=== PATIENT | female | born 1960 | race Caucasian/White ===

== ENCOUNTER → 2017-07-17 15:45 | Outpatient (CLI) | payer BC, SELFPAY ==
--- NOTE | 2017-07-17 15:50 | MM_ITS ---
MM Dig screening mamm BI w/CAD CAD Screening ORDERING PHYSICIAN : Adolph Quintero MD PATIENT AGE: 56 years GENDER: Female COMPARISON: Previous mammograms: June 2016,; June 2014, 1999May [id number] INDICATION: No hormones no new complaints. Family history. Great aunt with breast cancer TECHNIQUE: Standard CC and MLO images were obtained. R2 CAD reviewed. FINDINGS: [id number] residual fibroglandular elements both breasts. Mild asymmetry. Gradual Regression of fibroglandular elements since previous studies dating back to 2012 as patient matures.. No significant new areas of concern. No dominant mass. No suspicious calcifications. The pattern of mild asymmetry remain stable RIGHT BREAST:. No new areas of concern. LEFT BREAST: No new areas of concern The tiny pinpoint calcifications noted on previous studies less evident and scattered compatible with benign calcification.. No significant calcifications IMPRESSION: Stable bilateral mammogram Follow-up in one year recommended BI-RADS Category: 2 Benign Finding(s) RECOMMENDED FOLLOW-UP: 1YR - 1 YEAR FOLLOW-UP (A letter has been sent to the patient regarding results of the study.)
== END ==
PROVIDERS: Family Provider Family Medicine; PCP Family Medicine; Visit Provider Obstetrics & Gynecology
DX: Z12.31 Encounter for screening mammogram for malignant neoplasm of breast (principal)
CPT/HCPCS: 77067

== ENCOUNTER → 2017-07-22 14:28 | Outpatient (CLI) | payer BC, SELFPAY ==
[2017-07-22 14:51] LABS: Hematocrit 35.3 % (37.0-47.0); Hemoglobin 11.6 g/dL (12.2-16.2)
== END ==
PROVIDERS: PCP Family Medicine; Visit Provider Surgery
DX: K62.5 Hemorrhage of anus and rectum (principal); K64.9 Unspecified hemorrhoids; K57.30 Diverticulosis of large intestine without perforation or abscess without bleeding; Z01.812 Encounter for preprocedural laboratory examination
CPT/HCPCS: 36415; 85014; 85018

== ENCOUNTER 2017-07-31 09:03 | Day surgery (SDC) | payer BC, SELFPAY ==
[2017-07-31] VITALS (14 sets, daily range): BP systolic 101–131; BP diastolic 48–79; PULSE 56–87; RESP 16–20; TEMP 37.1; O2SAT 94–98; BMI 29.5
[2017-07-31 09:55] LABS: Hematocrit 37.1 % (37.0-47.0); Hemoglobin 12.4 g/dL (12.2-16.2)
--- NOTE | 2017-07-31 11:04 | HMH.SCOPE ---
- Procedure: Date: 07/31/17 Procedure Performed:: Colonoscopy Indications:: This is a 56-year-old female seen in consultation from Dr. Quintero for colonoscopy. She has had intermittent bright red blood per rectum that she attributes to hemorrhoids. In 2005 she had confirmation of diverticulosis and hemorrhoids, but no polypoid lesions on colonoscopy. Performing Provider:: Carlos Banuelos MD Referring Provider:: Dr. Adolph Quintero The patient's primary care provider is Dr. Fam Preciado Sedation:: IV sedation with 9 mg of Versed and 200 mcg of fentanyl Procedure:: After informed consent was obtained, the patient was taken to the endoscopy suite. IV sedation ensued after she was transferred to the left lateral decubitus position. Digital rectal exam revealed mild stenosis. Mild hemorrhoidal cushions were noted. The colonoscope was placed in position. The entire colon was evaluated. Bowel preparation was relatively fair with irrigation and suctioning used to improve visualization. Moderate spasticity was encountered. Moderate sigmoid diverticulosis confirmed. No polypoid lesions were seen. Hemorrhoidal cushions that were relatively mild were seen. No thrombosis or bleeding was noted. The colonoscope was carefully removed and the patient was transferred to recovery. Findings:: Bowel preparation relatively fair Moderate colonic spasticity Moderate sigmoid diverticulosis Mild anal stenosis Mild hemorrhoidal cushions Specimens:: None Recommendations:: Repeat colonoscopy in 3-5 years secondary to moderate spasticity. Complications:: No immediate Estimated blood obtained (mL): 0
== END 2017-07-31 11:58 | disposition home or self-care (01) ==
LOC: OUTP 09:05
PROVIDERS: Family Provider Family Medicine; PCP Family Medicine; Visit Provider Surgery
PROC: 0DJD8ZZ Inspection of Lower Intestinal Tract, Via Natural or Artificial Opening Endoscopic (ICD-10-PCS; CPT 45378; principal; 2017-07-31 09:30)
DX: Z12.11 Encounter for screening for malignant neoplasm of colon (principal); D64.9 Anemia, unspecified
CPT/HCPCS: 45378; 85014; 85018; 99152; 99153

== ENCOUNTER → 2018-07-16 15:34 | Outpatient (CLI) | payer BC, SELFPAY ==
--- NOTE | 2018-07-16 15:49 | XR_ITS ---
XR knee LT 4V HISTORY: ITS.REASON: LT KNEE PAIN ORDERING PHYSICIAN: RORY Montenegro PATIENT AGE: 57 years COMPARISON: None FINDINGS: 4 views obtained including sunrise view No fracture or dislocation. No lytic or blastic change. Normal mineralization. No significant arthritic changes evident. There is minimal spurring along the lateral aspect of the patella as noted on the sunrise view IMPRESSION: Minimal degenerative change patellofemoral joint otherwise negative left knee
--- NOTE | 2018-07-16 15:49 | XR_ITS ---
XR knee RT 4V HISTORY: ITS.REASON: RT KNEE PAIN ORDERING PHYSICIAN: RORY Montenegro PATIENT AGE: 57 years COMPARISON: None FINDINGS: There are minimal osteoarthritic changes of the medial compartment and of the lateral compartment with slight decrease in the joint space medially and minimal osteophyte formation along the distal femur laterally and the posterior proximal tibia. No other significant anomalies. IMPRESSION: Minimal osteoarthritis
== END ==
PROVIDERS: PCP Family Medicine; Visit Provider Physician Assistant
DX: M25.562 Pain in left knee (principal); M25.561 Pain in right knee
CPT/HCPCS: 73564

== ENCOUNTER → 2018-07-21 15:44 | Outpatient (CLI) | payer BC, SELFPAY ==
--- NOTE | 2018-07-21 15:46 | MM_ITS ---
MM Dig screening mamm BI w/CAD ORDERING PHYSICIAN : Adolph Quintero MD PATIENT AGE: 57 years GENDER: Female COMPARISON: July 1999 June. INDICATION: ITS.REASON: SCREENING no hormones no new complaints Family history: maternal great aunt TECHNIQUE: Standard CC and MLO images were obtained. R2 CAD reviewed. FINDINGS: Moderate residual fibroglandular elements bilaterally with exam-sj-eklqqrml breast density overall. . Overall stable appearance the breasts with no dominant mass nor suspicious calcifications. CAD computer review highlights no areas of concern either. RIGHT BREAST:No new findings LEFT BREAST:. No new findings 3 for tiny faint calcifications at the central breast on cc view of remain stable since 2013. No suspicious calcifications. IMPRESSION: ' Stable bilateral mammogram. No new areas of concern. Follow-up in one year recommended BI-RADS Category: 1 Negative RECOMMENDED FOLLOW-UP: 1YR 1 YEAR FOLLOW-UP (A letter has been sent to the patient regarding results of the study.)
== END ==
PROVIDERS: PCP Family Medicine; Visit Provider Obstetrics & Gynecology
DX: Z12.31 Encounter for screening mammogram for malignant neoplasm of breast (principal)
CPT/HCPCS: 77067

== ENCOUNTER 2018-12-13 18:23 | Emergency (ER) | payer BC, SELFPAY ==
[2018-12-13 18:38] VITALS: BP 153/81; PULSE 72; RESP 21; TEMP 36.9; O2SAT 99; BMI 28.0
--- NOTE | 2018-12-13 19:58 | HMH.EDUTC ---
[facility] – [place] Disposition Clinical Impression: Laceration of forearm Qualifiers: Encounter type: initial encounter Laterality: right Qualified Code(s): S51.811A - Laceration without foreign body of right forearm, initial encounter Disposition: Home, Self-Care Condition on Discharge: Good Instructions: How to Care for a Laceration After Repair, Laceration Repair, DI for Laceration Repair, DI for Laceration Repair -- Simple Additional Instructions: Suture instructions: You have required stitches today. Please read the following instructions so you know how to care for them: 1. Keep wound area dry for the first 24 hours. 2 May clean gently with mild soap and water, after 48 hours to prevent crusting over suture knots. 3. You may shower if your provider gives permission but do not take a bath until the skin is healed.. 4. Never leave a wet dressing or Band-Aid on your stitches as this allows bacteria to reach the area and may cause infection. Band-aids can cause the wound to sweat and not recommended to wear for long periods of time Leave area open to air when home Watch for signs of infection: Increasing redness, tenderness or warmth around the suture site Unusual swelling around the site Appearance of pus around each suture or any red streaks Fever If you develop any of the above signs or symptoms of infection, Follow up with Family Physician immediately 5. Suture removal in _7-10___days Follow up with family doctor immediately if any signs of infection or uncontrolled bleeding Return if needed Straight to ER if any life threatening symptoms Referrals: Alia Preciado MD [Primary Care Provider] - As needed Time of Disposition: 20:08 Medical Decision Making - Miles Inquiry Pt receiving controlled substance: No Miles was queried for this patient: No Vital Signs: 12/13/18 18:38 Temperature 98.4 F Temperature Source Oral Pulse Rate [Left Brachial] 72 Respiratory Rate 21 Blood Pressure [Left Arm] 153/81 H Blood Pressure Mean [Left Arm] 105 Blood Pressure Source [Left Arm] Automatic Cuff Blood Pressure Position [Left Arm] Sitting 02 Sat by Pulse Oximetry 99 Oxygen Delivery Method Room Air - Reevaluation(s) Time: 18:45 Reevaluation #1: Dr Mcgraw came to [facility] and evaluated wound and agreed with closure and no ligament or muscle tissue involved in laceration Wound to be closed in [facility] HPI - General Stated complaint: AO 0602 @1700 Lac to R arm Time Seen by Provider: 12/13/18 18:45 Mode of Arrival: Family Vehicle Source of Information: Patient Limitations: No Limitations Description of Symptoms (Recalled from Triage Doc. by RN): C/O LACERATION TO RIGHT FOREARM HEENT Symptoms (Recalled from RN notes): No Resp Symptoms (Recalled from RN notes): No Skin Symptoms (Recalled from RN notes): Yes MS Symptoms (Recalled from RN notes): No Functional Status (Recalled from RN notes): N/A - History of Present Illness Provider Complaint: Patient [place] and fell on the escavator and her right forearm struck the step on the escavator and it cut her right forearm State that she went to the hospital in [facility] and they told her that it would be 2-4 hours so she came on the [facility] - Related Data Allergies Allergy/AdvReac Type Severity Reaction Status Date / Time No Known Allergies Allergy Verified 05/26/18 14:17 - Worker's Comp Is this a Worker's Comp case?: No [facility] History - Hepatitis A Screen Drug use history?: No High risk sexual behaviors?: No History of sexually transmitted infection?: No Currently employed?: No Childcare worker?: No Do you have indoor plumbing?: Yes Do you have electricity?: Yes Attestation statement:: This patient has been screened for Hepatitis A risk factors. I have reviewed the patient's past medical history: Yes Medical History: Reports:: Asthma Denies:: Diabetes Mellitus Type 1, Diabetes Mellitus Type 2, Internal Pacemaker, Matthew
--- NOTE | 2018-12-13 20:01 | ED_ITS ---
[facility] – [place] Disposition Clinical Impression: Laceration of forearm Qualifiers: Encounter type: initial encounter Laterality: right Qualified Code(s): S51.811A - Laceration without foreign body of right forearm, initial encounter Disposition: Home, Self-Care Condition on Discharge: Good Instructions: How to Care for a Laceration After Repair, Laceration Repair, DI for Laceration Repair, DI for Laceration Repair -- Simple Additional Instructions: Suture instructions: You have required stitches today. Please read the following instructions so you know how to care for them: 1. Keep wound area dry for the first 24 hours. 2 May clean gently with mild soap and water, after 48 hours to prevent crusting over suture knots. 3. You may shower if your provider gives permission but do not take a bath until the skin is healed.. 4. Never leave a wet dressing or Band-Aid on your stitches as this allows bacteria to reach the area and may cause infection. Band-aids can cause the wound to sweat and not recommended to wear for long periods of time Leave area open to air when home Watch for signs of infection: Increasing redness, tenderness or warmth around the suture site Unusual swelling around the site Appearance of pus around each suture or any red streaks Fever If you develop any of the above signs or symptoms of infection, Follow up with Family Physician immediately 5. Suture removal in _7-10___days Follow up with family doctor immediately if any signs of infection or uncontrolled bleeding Return if needed Straight to ER if any life threatening symptoms Referrals: Alia Preciado MD [Primary Care Provider] - As needed Time of Disposition: 20:08 Medical Decision Making - Miles Inquiry Pt receiving controlled substance: No Miles was queried for this patient: No Vital Signs: 12/13/18 18:38 Temperature 98.4 F Temperature Source Oral Pulse Rate [Left Brachial] 72 Respiratory Rate 21 Blood Pressure [Left Arm] 153/81 H Blood Pressure Mean [Left Arm] 105 Blood Pressure Source [Left Arm] Automatic Cuff Blood Pressure Position [Left Arm] Sitting 02 Sat by Pulse Oximetry 99 Oxygen Delivery Method Room Air - Reevaluation(s) Time: 18:45 Reevaluation #1: Dr Mcgraw came to [facility] and evaluated wound and agreed with closure and no ligament or muscle tissue involved in laceration Wound to be closed in [facility] HPI - General Stated complaint: AO 0602 @1700 Lac to R arm Time Seen by Provider: 12/13/18 18:45 Mode of Arrival: Family Vehicle Source of Information: Patient Limitations: No Limitations Description of Symptoms (Recalled from Triage Doc. by RN): C/O LACERATION TO RIGHT FOREARM HEENT Symptoms (Recalled from RN notes): No Resp Symptoms (Recalled from RN notes): No Skin Symptoms (Recalled from RN notes): Yes MS Symptoms (Recalled from RN notes): No Functional Status (Recalled from RN notes): N/A - History of Present Illness Provider Complaint: Patient state [place] she [place] and fell on the escavator and her right forearm struck the step on the escavator and it cut her right forearm State that she went to the hospital in [facility] and they told her that it would be 2-4 hours so she came on the [facility] - Related Data Allergies Allergy/AdvReac Type Severity Reaction Status Date / Time No Known Allergies Allergy Verified 05/26/18 14:17
[2018-12-13 20:21] VITALS: BP 153/81; PULSE 72; RESP 21; TEMP 36.9; O2SAT 99
== END 2018-12-13 20:27 | disposition home or self-care (01) ==
PROVIDERS: Emergency Provider Nurse Practitioner; PCP Family Medicine
DX: S51.811A Laceration without foreign body of right forearm, initial encounter (principal); Z23 Encounter for immunization; W01.10XA Fall on same level from slipping, tripping and stumbling with subsequent striking against unspecified object, initial encounter; Y92.834 Zoological garden (Zoo) as the place of occurrence of the external cause; J45.909 Unspecified asthma, uncomplicated
CPT/HCPCS: 12001; 90471; 90715; 96372; 99202

== ENCOUNTER → 2019-07-23 14:38 | Outpatient (CLI) | payer BC, SELFPAY ==
--- NOTE | 2019-07-23 14:38 | XR_ITS ---
PROCEDURE: XR DEXA AXIAL SKELETON CLINICAL HISTORY: screening COMPARISON: No exams were available for comparison FINDINGS: The left femoral neck density is 0.736 grams/centimeters sq with a T-score of -1.0. Right femoral neck density it is 0.765 grams/centimeters sq with T-score of -0.8. L1-L4 density has a T-score -0.3. IMPRESSION: Normal bone density. Recommend follow-up in 2 years Dictated by: Rachid Mckinley MD 07/23/2019 15:08 Electronically signed by Rachid Mckinley MD in [place] 07/23/2019 15:08
== END ==
PROVIDERS: PCP Family Medicine; Visit Provider Obstetrics & Gynecology
DX: Z78.0 Asymptomatic menopausal state (principal); Z13.820 Encounter for screening for osteoporosis
CPT/HCPCS: 77080

== ENCOUNTER → 2019-08-10 16:45 | Outpatient (CLI) | payer BC, SELFPAY ==
--- NOTE | 2019-08-10 16:46 | MM_ITS ---
PROCEDURE: MM DIG SCREENING MAMM BI W/CAD CLINICAL INDICATION: screening There is history of breast cancer patient's maternal great aunt. COMPARISON: [facility] DIG MAMM-SCREEN KADE W/CAD from 07/11/2016 [facility] MM Dig screening mamm BI w/CAD from 07/17/2017 [facility] MM Dig screening mamm BI w/CAD from 07/21/2018 TECHNIQUE: Standard CC and MLO images and 3D Tomosinthisis was obtained. R2 CAD reviewed. FINDINGS: Mild scattered fibroglandular densities are seen throughout both breasts on a background of fatty breast parenchyma. There is no suspicious lesion and no suspicious microcalcifications. Jcarlos images were reviewed. IMPRESSION: Fibrofatty parenchyma with no suspicious lesions seen BI-RAD Category: 1 Negative FOLLOW-UP: 1YR 1 Year Follow-up (A letter has been sent to the patient regarding results of the study.) Dictated by: Dr. Jermaine Beasley MD 08/12/2019 09:[address] Jermaine Beasley MD in [place] 08/12/2019 09:59
== END ==
PROVIDERS: PCP Family Medicine; Visit Provider Obstetrics & Gynecology
DX: Z12.31 Encounter for screening mammogram for malignant neoplasm of breast (principal)
CPT/HCPCS: 77063; 77067

== ENCOUNTER → 2020-10-19 09:28 | Outpatient (CLI) | payer BC, SELFPAY ==
--- NOTE | 2020-10-19 09:30 | MM_ITS ---
PROCEDURE: MM DIG SCREENING MAMM BI W/CAD Digital Breast Tomosynthesis Included CLINICAL INDICATION: SCREENING There is history of breast cancer patient's maternal great aunt COMPARISON: [facility] MM Dig screening mamm BI w/CAD from 07/17/2017 MG [facility] MM Dig screening mamm BI w/CAD from 07/21/2018 MG MM DIG SCREENING MAMM BI W/CAD from 08/10/2019 TECHNIQUE: Standard CC and MLO images and 3D Tomosynthesis was obtained. R2 CAD reviewed. FINDINGS: Mild to moderate scattered fibroglandular densities are seen in both breasts. There are no CAD markings. There is no new or suspicious lesion in either breast and no suspicious microcalcifications. IMPRESSION: Mild to moderate breast density with no suspicious lesions seen BI-RAD Category: 1 Negative FOLLOW-UP: 1YR 1 Year Follow-up (A letter has been sent to the patient regarding results of the study.) Dictated by: Dr. Jermaine Beasley MD 10/20/2020 11:48 Dr. Jermaine Beasley MD in [place] 10/20/2020 11:48
== END ==
PROVIDERS: PCP Family Medicine; Visit Provider Obstetrics & Gynecology
DX: Z12.31 Encounter for screening mammogram for malignant neoplasm of breast (principal)
CPT/HCPCS: 77063; 77067

== ENCOUNTER → 2020-12-06 11:10 | Outpatient (CLI) | payer BC, SELFPAY ==
--- NOTE | 2020-12-06 11:14 | XR_ITS ---
PROCEDURE: XR RIBS LT MIN 3V W CXR1V CLINICAL INDICATION: CHEST WALL PAIN COMPARISON: CR CXR CHEST(2 VIEWS-NOT PORTABLE) from 06/14/2017 FINDINGS: No fracture or dislocation. No lytic or blastic change. IMPRESSION: Negative left ribs Dictated by: Rachid Mckinley MD 12/06/2020 11:59 Rachid Mckinley MD in [place] 12/06/2020 11:59
--- NOTE | 2020-12-06 11:15 | XR_ITS ---
PROCEDURE: XR CHEST 2V CLINICAL HISTORY: CHEST WALL PAIN COMPARISON: CR CXR CHEST(2 VIEWS-NOT PORTABLE) from 06/14/2017 CR XR RIBS LT MIN 3V W CXR1V from 12/06/2020 FINDINGS: The cardiomediastinal silhouette and pulmonary vascularity are within normal limits. No lobar consolidation or collapse is evident. In the right suprahilar region there is nodular opacity measuring 1.5 by 0.7 cm. This may be due to overlapping vascular structures however, developing pulmonary nodule is consideration. Consider chest CT with contrast for further evaluation. No acute bony abnormalities. IMPRESSION: No acute finding. Possible right suprahilar nodule which may be better evaluated with chest CT with contrast. Dictated by: Rachid Mckinley MD 12/06/2020 11:58 Rachid Mckinley MD in [place] 12/06/2020 11:58
== END ==
PROVIDERS: PCP Family Medicine; Visit Provider Nurse Practitioner Family
DX: S20.219A Contusion of unspecified front wall of thorax, initial encounter (principal)
CPT/HCPCS: 71046; 71101

== ENCOUNTER → 2020-12-18 08:27 | Outpatient (CLI) | payer BC, SELFPAY ==
--- NOTE | 2020-12-18 08:38 | US_ITS ---
PROCEDURE: US ABDOMEN LIMITED CLINICAL INDICATION: LUQ PAIN COMPARISON: No exams were available for comparison FINDINGS: The spleen has an unremarkable appearance. Left kidney shows no evidence of hydronephrosis. There is a small parapelvic renal cyst in the upper pole at 13 mm. Small amount fluid is noted in the region the anterior pararenal fascia. Etiology of the fluid is undetermined. IMPRESSION: Small amount of fluid in the left anterior pararenal fascia region. Etiology is undetermined. Consider abdomen CT with contrast for further evaluation in this patient with recent trauma. Otherwise negative left upper quadrant ultrasound. Dictated by: Rachid Mckinley MD 12/18/2020 13:27 Rachid Mckinley MD in [place] 12/18/2020 13:27
== END ==
PROVIDERS: PCP Family Medicine; Visit Provider Nurse Practitioner Family
DX: R10.12 Left upper quadrant pain (principal)
CPT/HCPCS: 76705

== ENCOUNTER 2020-12-19 09:08 | Emergency (ER) | payer OTHER, SELFPAY ==
[2020-12-19 09:15] VITALS: BP 141/75; PULSE 91; RESP 19; TEMP 36.8; O2SAT 98; BMI 31.1
[2020-12-19 09:36] VITALS: BP 141/75; PULSE 91; RESP 19; TEMP 36.8; O2SAT 98
--- NOTE | 2020-12-19 09:46 | HMH.EDUTC ---
[facility] [place]: [place] Disposition: Home, Self-Care Condition on Discharge: Good Instructions: How to Take Care of a Burn, DI for Delgado, Minor Delgado (Alternative Therapy), Silver Sulfadiazine Additional Instructions: Cleanse burn with mild soap and water or dilute antiseptic solution Leave blisters intact if you develop them Apply cream to burn on cheek and nose but avoid getting it around your eye Vaseline on your lips Follow up immediately if you have any trouble breathing or swallowing Return if needed Straight to ER if any life threatening symptom Prescriptions: Bacitracin [Bacitracin Oint 0.9GM UDP] 1 each TP TID 10 Days #30 packet Transmission Status: Received by [id number] Referrals: Alia rPeciado MD [Primary Care Provider] - As needed Time of Disposition: 10:01 Medical Decision Making - Miles Inquiry Pt receiving controlled substance: No Miles was queried for this patient: No Vital Signs: 12/19/20 09:15 12/19/20 09:36 Temperature 98.3 F 98.3 F Temperature Source Oral Pulse Rate 91 H Pulse Rate [Right Brachial] 91 H Respiratory Rate 19 19 Blood Pressure 141/75 H Blood Pressure [Right Arm] 141/75 H Blood Pressure Mean [Right Arm] 97 Blood Pressure Source [Right Arm] Automatic Cuff Blood Pressure Position [Right Arm] Sitting 02 Sat by Pulse Oximetry 98 Oxygen Delivery Method Room Air Medical Decision Narrative: Discussed with patient and she advised that she did not breath in hot steam and had a mask on when the steam hit her in the face and she immediately turned away from it Denies pain or burning sensation in mouth and nose State that she immediately applied cool water to her face and sprayed it with burn spray. Discussed transfer to the ED to rule out inhalation injury and patient [place] [facility] [place] - General Stated complaint: a/o 12/19 Steam from oven in face Time Seen by Provider: 12/19/20 09:46 Mode of Arrival: Ambulatory Source of Information: Patient Limitations: No Limitations Description of Symptoms (Recalled from Triage Doc. by RN): PATIENT C/O STEAM BUN TO FACE FROM OVEN WHILE SHE WAS AT WORK THIS MORNING HEENT Symptoms (Recalled from RN notes): Yes Resp Symptoms (Recalled from RN notes): No Skin Symptoms (Recalled from RN notes): Yes MS Symptoms (Recalled from RN notes): No Functional Status (Recalled from RN notes): WNL - History of Present Illness Provider Complaint: Patient state that she opened up the oven at work and was wearing a mask but steam came up and got her in the face States that she has a small steam burn on her right cheek and across her nose State that she immediately washed the area and applied burn spray and her boss wanted her to come in and get it checked Denies inhalation of steam states she closed her mouth and held her breath to get out of the steam Denies burning feeling inside nose or mouth - Related Data Previous Rx's Medication Instructions Recorded Bacitracin [Bacitracin Oint 0.9GM 1 each TP TID 10 Days #30 packet 12/19/20 UDP] Allergies Allergy/AdvReac Type Severity Reaction Status Date / Time No Known Allergies Allergy Verified 09/29/20 16:46 - Worker's Comp Is this a Worker's Comp case?: No [facility] History - Hepatitis A Screen Drug use history?: No High risk sexual behaviors?: No History of sexually transmitted infection?: No Currently employed?: No Childcare worker?: No Do you have indoor plumbing?: Yes Do you have electricity?: Yes Attestation statement:: This patient has been screened for Hepatitis A risk factors. I have reviewed the patient's past medical history: Yes Medical History: Reports:: Asthma Denies:: Diabetes Mellitus Type 1, Diabetes Mellitus Type 2, Internal Pacemaker, Lung Disease, Seizures Comment: ASTHMA Laterality Cases: Bilateral: Carpal Tunnel Release Other Surgeries: Yes: Colonoscopy. No: Pacemaker Amputation: No Fractures: No Comment: D&E 1999.
== END 2020-12-19 10:08 | disposition home or self-care (01) ==
PROVIDERS: Emergency Provider Nurse Practitioner; PCP Family Medicine
DX: T20.16XA Burn of first degree of forehead and cheek, initial encounter (principal); T20.14XA Burn of first degree of nose (septum), initial encounter; X13.1XXA Other contact with steam and other hot vapors, initial encounter; Y92.69 Other specified industrial and construction area as the place of occurrence of the external cause; Y99.0 Civilian activity done for income or pay
CPT/HCPCS: 99202; G0463

== ENCOUNTER → 2020-12-19 14:48 | Outpatient (CLI) | payer BC, SELFPAY ==
[2020-12-19 16:03] LABS: Blood Urea Nitrogen 18 mg/dl (7-17); Estimated Glomerular Filt Rate 126 ml/min (>60); GFR (African American) 153 ML/MIN (>60)
== END ==
PROVIDERS: Visit Provider Nurse Practitioner Family
DX: Z01.812 Encounter for preprocedural laboratory examination (principal)
CPT/HCPCS: 36415; 82565; 84520

== ENCOUNTER → 2020-12-21 13:42 | Outpatient (CLI) | payer BC, SELFPAY ==
--- NOTE | 2020-12-21 13:51 | CT_ITS ---
PROCEDURE: CT CHEST W CON CLINCAL INDICATION: PULMONARY NODULE Seen on CXR COMPARISON: CR XR CHEST 2V from 12/06/2020 TECHNIQUE: IV Contrast: 75ml Isovue 370 Axial images obtained with sagittal and coronal reformats. All CT scans at the facility use one or more dose reduction, viz: automated exposure control, ma/kV adjustment per patient size (including targeted exams where dose is matched to indication, i.e. head), or iterative reconstruction technique. FINDINGS: HEART AND MEDIASTINAL STRUCTURES: No mediastinal or hilar mass or adenopathy. LUNGS AND PLEURAL SPACES: No suspicious nodule is evident. Radiographic abnormality corresponds to overlapping vasculature. There is a small subpleural opacity in the superior segment of the left lower lobe measuring approximately 3 mm. BONY STRUCTURES: Degenerative changes thoracic spine UPPER ABDOMEN: Mild narrowing of the proximal aspect of the celiac artery ADDITIONAL FINDINGS: No other significant abnormalities. IMPRESSION: The radiographic abnormality in the right upper lobe corresponds to overlapping vessels. There is a 3-4 mm subpleural opacity in the superior segment of the left lower lobe. This is nonspecific and could be due to a parenchymal area of scarring. 6-12 month follow-up may confirm stability. Dictated by: Rachid Mckinley MD 12/22/2020 08:49 Rachid Mckinley MD in [place] 12/22/2020 08:49
== END ==
PROVIDERS: PCP Family Medicine; Visit Provider Nurse Practitioner Family
DX: R91.1 Solitary pulmonary nodule (principal)
CPT/HCPCS: 71260; Q9967

== ENCOUNTER → 2020-12-28 15:11 | Outpatient (CLI) | payer BC, SELFPAY ==
[2020-12-28 16:16] LABS: Blood Urea Nitrogen 25 mg/dl (7-17); Estimated Glomerular Filt Rate 73 ml/min (>60); GFR (African American) 89 ML/MIN (>60)
== END ==
PROVIDERS: Visit Provider Nurse Practitioner Family
DX: Z01.812 Encounter for preprocedural laboratory examination (principal)
CPT/HCPCS: 36415; 82565; 84520

== ENCOUNTER → 2021-01-01 10:36 | Outpatient (CLI) | payer BC, SELFPAY ==
--- NOTE | 2021-01-01 10:43 | CT_ITS ---
PROCEDURE: CT ABDOMEN W CON CLINICAL HISTORY: DISORDER OF KIDNEY Left upper quadrant pain, fall with injury and pain COMPARISON: No exams were available for comparison TECHNIQUE: 75 mL Optiray 350 IV Axial images obtained with sagittal and coronal reformats. All CT scans at the facility use one or more dose reduction, viz: automated exposure control, ma/kV adjustment per patient size (including targeted exams where dose is matched to indication, i.e. head), or iterative reconstruction technique. FINDINGS: Minimal atelectatic or fibrotic changes are present in the right lower lobe laterally. The liver, spleen, adrenal glands, pancreas, and gallbladder has an unremarkable appearance. No renal or ureteral calculi. No evidence of perinephric hematoma or perisplenic hematoma. There is mild colonic thickening involving the transverse colon, splenic flexure, and proximal descending colon with numerous diverticula in this region but no evidence of focal diverticulitis. No abscess. No free air. Degenerative disc disease is present in the lower thoracic spine. There is 4 mm anterolisthesis of L4 on L5. No obvious lower rib fracture IMPRESSION: 1. There is mild thickening of the splenic flexure portion of the colon suggesting colitis. 2. Colonic diverticulosis but no evidence of acute diverticulitis. Dictated by: Rachid Mckinley MD 01/01/2021 11:54 Rachid Mckinley MD in [place] 01/01/2021 11:54
== END ==
PROVIDERS: PCP Family Medicine; Visit Provider Nurse Practitioner Family
DX: N28.9 Disorder of kidney and ureter, unspecified (principal)
CPT/HCPCS: 74160; Q9967

== ENCOUNTER → 2021-07-31 10:22 | Outpatient (CLI) | payer BC, SELFPAY | PROVIDERS: Visit Provider Nurse Practitioner | DX: Z20.822 Contact with and (suspected) exposure to COVID-19 (principal) | CPT/HCPCS: C9803; U0003; U0005 ==

== ENCOUNTER → 2022-03-07 16:50 | Outpatient (CLI) | payer BC, SELFPAY ==
[2022-03-07 19:59] LABS: Blood Urea Nitrogen 13 mg/dl (7-17); Estimated Glomerular Filt Rate 85 ml/min (>60); GFR (African American) 103 ML/MIN (>60)
== END ==
PROVIDERS: PCP Family Medicine; Visit Provider Family Medicine
DX: R93.89 Abnormal findings on diagnostic imaging of other specified body structures (principal)
CPT/HCPCS: 36415; 82565; 84520

== ENCOUNTER → 2022-03-08 09:47 | Outpatient (CLI) | payer BC, SELFPAY ==
--- NOTE | 2022-03-08 | CA_ITS ---
APPROVED REPORT Exam: Exercise Treadmill Technologist: Estefania Castillo, Ht: 5 ft 3 in Wt: 181 lbs BSA: 1.85 m2 HR: 73 bpm BP: 136/85 mmHg Medical History Medications: Crestor,,,,, Stress Test Details Test: Manual Treadmill HR Resting HR: 87 bpm Max Heart Rate (APMHR): 160 bpm Max HR Achieved: 166 bpm Target HR (85% APMHR): 136 bpm % of APMHR: 103 Recovery HR: 91 bpm BP Resting BP: 123/54 mmHg Max BP: 180/90 mmHg Recovery BP: 142.0/61.0 mmHg ECG Resting ECG: SR Clinical Exercise duration: 09:58 min Highest Stage Achieved: IV Exercise capacity: 12.8 METs Stress ECG Conclusion Test stopped due to: SOA, leg fatigue Symptom: SOA with peak exercise Arrhythmias/Ectopy: none -- and no changes of ischemia noted. Normal test other than poor fitness. Test Summary REST . . . . . . . Sitting REST . . . . . . . Standing REST 09:16 0.0 0.0 87 . 123/ 54 . . Stage 1 01:00 10.0 1.7 106 . . . . Stage 1 02:00 10.0 1.7 112 . . . . Stage 1 03:00 10.0 1.7 115 . 142/ 78 . . Stage 2 01:00 12.0 2.5 130 . . . . Stage 2 02:00 12.0 2.5 135 . . . . Stage 2 03:00 12.0 2.5 135 . 158/ 80 . . Stage 3 01:00 14.0 3.4 142 . . . . Stage 3 02:00 14.0 3.4 145 . . . . Stage 3 03:00 14.0 3.4 143 . . . . Stage 4 00:58 16.0 0.0 164 . . . Stop exercise at 09:58 RECOVERY 01:00 0.0 0.0 125 . 180/ 90 . . RECOVERY . . . . . . . Protocol changed to Manual Treadmill RECOVERY 02:00 0.0 0.0 98 . 180/ 90 . . RECOVERY 03:00 0.0 0.0 94 . 162/ 84 . . RECOVERY 04:00 0.0 0.0 94 . 144/ 72 . . RECOVERY 04:36 0.0 0.0 91 . 142/ 61 . . Electronically signed by : Miguel Dawson MD 03/09/2022 08:04:14
--- NOTE | 2022-03-08 11:00 | CT_ITS ---
FINAL REPORT TECHNIQUE: After the administration of intravenous contrast, axial images through the chest were performed by computed tomography.This study was performed with techniques to keep radiation doses as low as reasonably achievable, (ALARA). Individualized dose reduction techniques using automated exposure control or adjustment of mA and/or kV according to the patient''s size were employed. CLINICAL HISTORY: ABN CT CHEST COMPARISON: December 21, 2020 FINDINGS: There is no axillary adenopathy. There is no hilar or mediastinal adenopathy. The heart size is normal. There is no pericardial or pleural effusion. The previously questioned density in the superior segment of the left lower lobe is stable and well seen on image 26 of series 2. The lungs are otherwise clear. Limited images of the upper abdomen are unremarkable. No suspicious infiltrate or nodule identified. There is a small sliding-type hiatal hernia. IMPRESSION: Stable density in the left lower lobe. Per Fleischner criteria, no further follow-up is recommended. Reviewed, Interpreted and Dictated by Raúl Zamarripa MD Transcribed by Sonya Viera Authenticated and [facility]
== END ==
PROVIDERS: PCP Family Medicine; Visit Provider Family Medicine
DX: R93.89 Abnormal findings on diagnostic imaging of other specified body structures (principal); E78.00 Pure hypercholesterolemia, unspecified
CPT/HCPCS: 71260; 93017; Q9967

== ENCOUNTER → 2022-03-26 09:21 | Outpatient (CLI) | payer BC, SELFPAY | PROVIDERS: PCP Family Medicine; Visit Provider Physician Assistant | DX: R00.2 Palpitations (principal) | CPT/HCPCS: 93225; 93226 ==

== ENCOUNTER → 2022-03-27 09:02 | Outpatient (CLI) | payer BC, SELFPAY ==
[2022-03-27 09:21] LABS: Basophils # 0.1 K/mm3 (0-0.2); Basophils % 2.2 % (0.1-2.0); Eosinophils # 0.2 K/mm3 (0.0-0.4); Eosinophils % 3.9 % (0.1-12.0); Hematocrit 40.6 % (37.0-47.0); Hemoglobin 13.1 g/dL (12.2-16.2); Lymphocytes # 1.5 K/mm3 (0.7-4.5); Lymphocytes % 38.5 % (10-50); Mean Corpuscular HGB Conc 32.3 g/dL (31.8-35.4); Mean Corpuscular Hemoglobin 29.8 pg (27.0-31.2); Mean Corpuscular Volume 92.3 fl (81-99); Mean Platelet Volume 7.5 fl (7.4-10.4); Monocytes # 0.3 K/mm3 (0.1-1.0); Monocytes % 7.4 % (1.7-9.3); Neutrophils # 1.8 K/mm3 (1.8-7.8); Platelet Count 212 K/mm3 (142-424); Red Cell Distribution Width 13.1 % (11.5-17.5); White Blood Count 3.8 K/mm3 (4.8-10.8)
[2022-03-27 10:27] LABS: Chloride 105 mmol/L (98-107)
[2022-03-27 10:28] LABS: Potassium 4.4 mmoL/L (3.5-5.1); Sodium 141 mmol/L (136-145)
[2022-03-27 10:30] LABS: Alanine Aminotransferase 19 U/L (12-78); Albumin Level 4.1 g/dl (3.5-5.0); Albumin/Globulin Ratio 1.5 (1.1-1.8); Alkaline Phosphatase 97 U/L (38-126); Anion Gap 10.4 mEq/L (5-15); Aspartate Amino Transferase 30 U/L (14-36); Bilirubin,Total 0.7 mg/dl (0.2-1.3); Blood Urea Nitrogen 16 mg/dl (7-17); Carbon Dioxide 30 mmol/L (22.0-30.0); Cholesterol 191 mg/dl (140-200); Estimated Glomerular Filt Rate 102 ml/min (>60); GFR (African American) 123 ML/MIN (>60); Globulin 2.8 g/dL (1.3-3.2); Total Protein,Serum 6.9 g/dl (6.3-8.2); Triglycerides 62 mg/dl (30-150); VLDL Cholesterol 12 mg/dL (0-40)
[2022-03-27 10:31] LABS: Calcium 8.7 mg/dl (8.4-10.2); Chol/HDL Ratio 2.4 (1-3.5); Glucose 94 mg/dl (74-100); HDL Cholesterol 78 mg/dl (40-60)
[2022-03-27 10:42] LABS: Direct LDL Cholesterol 73.67 mg/dL (100-129)
[2022-03-27 10:50] LABS: T4 (Thyroxine) 8.9 ug/dl (5.53-11.0)
[2022-03-27 11:03] LABS: Thyroid Stimulating Hormone 1.57 uIU/mL (0.465-4.68)
[2022-03-27 11:11] LABS: Free Thyroxine Index 2.8 ug/dL (5.93-13.13); Triiodothryronine (T3) Uptake 31 % (23.5-40.5)
== END ==
PROVIDERS: PCP Family Medicine; Visit Provider Physician Assistant
DX: R53.83 Other fatigue (principal); R00.2 Palpitations; I10 Essential (primary) hypertension; E78.5 Hyperlipidemia, unspecified; R07.9 Chest pain, unspecified; R60.0 Localized edema
CPT/HCPCS: 36415; 80053; 80061; 84436; 84443; 84479; 85025

== ENCOUNTER → 2022-03-29 12:46 | Outpatient (CLI) | payer BC, SELFPAY ==
--- NOTE | 2022-03-29 12:47 | CA_ITS ---
APPROVED REPORT EXAM: Comprehensive 2D, Doppler, and color-flow Echocardiogram Refiner Operator: Melissa Muñoz CRT Ht: 5 ft 3 in Wt: 185lbs BSA: 1.87 BP: 148/81 mmHg Indications: Chest Pain, Shortness of Breath, Atrial Fibrillation, Palpitations, Fatigue, Peripheral Edema, Hyperlipidemia 2D Dimensions LVOT 2.13 cm (M/F) 1.5-2.5 LA Volume 40.40 mL LA Volume Index 21.60 mL/m2 (M/F) 16-34 M-Mode Dimensions RVDd 2.48 cm (0.9-2.6) LA Diam 2.98 cm (1.9-4.0) LVDd 4.93 cm (3.5-5.7) Ao Diam 3.12 cm (2.0-3.7) LVDs 3.46 cm (3.5-5.7) IVSd 0.92 cm (0.6-1.1) PWd 0.51 cm (0.6-1.1) EF (Teich) 56.70% FS 29.80% EDV (Teich) 114.40 mL TAPSE 2.15 (<1.7) ESV (Teich) 49.50 mL LV Diastology E Decel Time 170.00 (160-240 msec) E/A Ratio 1.39 MED E' 4.90 (< 7 cm/sec) MED A' 7.80 cm/s E'/MED E' Ratio 15.76 (>14) LAT E' 10.00 (<10 cm/sec) LAT A' 9.60 cm/s E/LAT E' Ratio 7.72 (>14) Aortic Valve AI PHT 767.00 ms AO Peak GR. 6.00 mmHg Mitral Valve MV A Velocity 56.00 (40-130 cm/s) E/A Ratio 1.39 MV Decel. Time 170.00 (160-240 ms) Pulmonary Valve PV Peak Velocity 104.00 (50-150 cm/s) Tricuspid Valve TR P. Velocity 181.00 cm/s RAP Estimate 10.00 mmHg RVSP 23.10 mmHg Left Ventricle Left atrium is moderately enlarged, left ventricle is normal size mild concentric left ventricular hypertrophy, estimated ejection fraction 55% with no regional wall motion abnormality, diastolic parameters are inconclusive. Right Ventricle Right atrium and right ventricle are normal size and contractility. Aortic Valve Aortic valve is thickened and calcified without aortic stenosis, there is mild aortic insufficiency. Mitral valve is grossly normal, there is mild mitral regurgitation. Tricuspid Valve Tricuspid valve is grossly normal, there is mild tricuspid regurgitation, tricuspid regurgitation jet velocity is inadequate for calculation of the right ventricular systolic pressure. Pulmonic Valve Pulmonic valve is poorly visualized. Great Vessels Aortic root is normal size. Inferior vena cava is mildly dilated with less than 50% inspiratory collapse. Pericardium No significant pericardial effusion. Conclusion 1. Moderately enlarged left atrium, normal left ventricular size, mild concentric left ventricular hypertrophy, estimated ejection fraction 55% with no regional wall motion abnormality, diastolic parameters are inconclusive. 2. Mild mitral and tricuspid regurgitation, tricuspid regurgitation jet velocity is inadequate for calculation of the right ventricular systolic pressure. 3. No significant pericardial effusion. 4. Inferior vena cava is mildly dilated with less than 50% inspiratory collapse. Electronically signed by : Kyaw Costa MD 03/31/2022 09:08:30
== END ==
PROVIDERS: PCP Family Medicine; Visit Provider Nurse Practitioner
DX: R07.9 Chest pain, unspecified (principal); R00.2 Palpitations; I48.0 Paroxysmal atrial fibrillation; R42 Dizziness and giddiness; R03.0 Elevated blood-pressure reading, without diagnosis of hypertension; R53.83 Other fatigue; R60.0 Localized edema; Z87.898 Personal history of other specified conditions
CPT/HCPCS: 93306

== ENCOUNTER → 2022-04-04 15:07 | Outpatient (CLI) | payer BC, SELFPAY | PROVIDERS: PCP Family Medicine; Visit Provider Physician Assistant | DX: I48.0 Paroxysmal atrial fibrillation (principal); R00.2 Palpitations; G47.30 Sleep apnea, unspecified; R06.83 Snoring; R53.83 Other fatigue | CPT/HCPCS: G0399 ==

== ENCOUNTER → 2022-10-24 20:10 | Outpatient (CLI) | payer BC, SELFPAY | PROVIDERS: PCP Family Medicine; Visit Provider Nurse Practitioner Family | DX: G47.33 Obstructive sleep apnea (adult) (pediatric) (principal); G47.36 Sleep related hypoventilation in conditions classified elsewhere; R06.83 Snoring | CPT/HCPCS: 95810 ==

== ENCOUNTER → 2022-12-31 09:56 | Outpatient (CLI) | payer BC, SELFPAY ==
--- NOTE | 2022-12-31 09:56 | MM_ITS ---
PROCEDURE INFORMATION: Exam: MG Bilateral Screening 3D Mammography Exam date and time: 12/31/2022 9:46 AM Age: 62 years old Clinical indication: Screening examination TECHNIQUE: Imaging protocol: Bilateral Screening tomosynthesis and 2D mammography including computer-aided detection (CAD) when performed. COMPARISON: 1. MG MM DIG SCREENING MAMM BI W/CAD 10/19/2020 9:28 AM 2. MG MM DIG SCREENING MAMM BI W/CAD 08/10/2019 4:53 PM FINDINGS: MAMMOGRAPHY: Breast composition: There are scattered areas of fibroglandular density. Mass: None. Architectural distortion: None. Calcifications: No suspicious calcifications. Asymmetric density: None. Skin thickening: None. Axillary adenopathy: None. IMPRESSION: No mammographic evidence of malignancy. Annual screening is recommended unless otherwise clinically indicated. ASSESSMENT: BI-RADS Category 1: Negative
== END ==
PROVIDERS: PCP Family Medicine; Visit Provider Obstetrics & Gynecology
DX: Z12.31 Encounter for screening mammogram for malignant neoplasm of breast (principal)
CPT/HCPCS: 77063; 77067

== ENCOUNTER → 2023-02-03 10:58 | Outpatient (CLI) | payer BC, SELFPAY ==
[2023-02-03 11:40] LABS: Basophils % 0.7 % (0.1-2.0); Eosinophils # 0.2 K/mm3 (0.0-0.4); Hematocrit 39.9 % (37.0-47.0); Hemoglobin 12.7 g/dL (12.2-16.2); Lymphocytes # 1.5 K/mm3 (0.7-4.5); Lymphocytes % 31.5 % (10-50); Mean Corpuscular HGB Conc 31.9 g/dL (31.8-35.4); Mean Corpuscular Hemoglobin 28.7 pg (27.0-31.2); Mean Corpuscular Volume 89.8 fl (81-99); Mean Platelet Volume 7.7 fl (7.4-10.4); Monocytes # 0.3 K/mm3 (0.1-1.0); Monocytes % 6.3 % (1.7-9.3); Neutrophils # 2.8 K/mm3 (1.8-7.8); Neutrophils % 57.5 % (37.0-80.0); Platelet Count 206 K/mm3 (142-424); Red Blood Count 4.44 M/mm3 (4.20-5.40); White Blood Count 4.9 K/mm3 (4.8-10.8)
[2023-02-03 12:42] LABS: Chloride 105 mmol/L (98-107); Potassium 4.5 mmoL/L (3.5-5.1); Sodium 140 mmol/L (136-145)
[2023-02-03 12:45] LABS: Alanine Aminotransferase 19 U/L (12-78); Albumin Level 3.9 g/dl (3.5-5.0); Alkaline Phosphatase 103 U/L (38-126); Anion Gap 10.5 mEq/L (5-15); Aspartate Amino Transferase 28 U/L (14-36); Bilirubin,Direct 0.3 mg/dl (0.0-0.4); Bilirubin,Indirect 0.4 mg/dL (0.0-0.9); Bilirubin,Total 0.7 mg/dl (0.2-1.3); Bilirubin,Unconjugated 0.4 mg/dL (0.0-1.1); Blood Urea Nitrogen 18 mg/dl (7-17); Calcium 9.5 mg/dl (8.4-10.2); Carbon Dioxide 29 mmol/L (22.0-30.0); Cholesterol 187 mg/dl (140-200); Estimated Glomerular Filt Rate 102 ml/min (>60); GFR (African American) 123 ML/MIN (>60); Glucose 93 mg/dl (74-100); Total Protein,Serum 6.9 g/dl (6.3-8.2); Triglycerides 81 mg/dl (30-150); VLDL Cholesterol 16 mg/dL (0-40)
[2023-02-03 12:46] LABS: Chol/HDL Ratio 2.7 (1-3.5); HDL Cholesterol 70 mg/dl (40-60); Magnesium 1.9 mg/dl (1.6-2.3)
[2023-02-03 12:57] LABS: Direct LDL Cholesterol 84.97 mg/dL (100-129)
[2023-02-03 13:01] LABS: Free T4 (Free Thyroxine) 0.91 ng/dl (0.78-2.19)
[2023-02-03 13:15] LABS: Thyroid Stimulating Hormone 0.93 uIU/mL (0.465-4.68)
== END ==
PROVIDERS: PCP Family Medicine; Visit Provider Nurse Practitioner
DX: E78.5 Hyperlipidemia, unspecified (principal); R53.83 Other fatigue; R60.0 Localized edema
CPT/HCPCS: 36415; 80048; 80061; 80076; 83735; 84439; 84443; 85025

== ENCOUNTER → 2023-02-24 09:10 | Outpatient (CLI) | payer BC, SELFPAY ==
--- NOTE | 2023-02-24 09:21 | XR_ITS ---
FINAL REPORT CLINICAL HISTORY: osteopenia COMPARISON: 07/23/2019 FINDINGS: Using L1-4, the bone mineral density of the spine is 1.025 g/cm2, corresponding to T-score of -0.2 which is within normal limits. Using the left hip, the bone mineral density of the femoral neck is 0.801 g/cm2, corresponding to a T-score of -0.4 which is within normal limits. Using the right hip, the bone mineral density of the femoral neck is 0.755 g/cm2, corresponding to a T-score of -0.8 which is within normal limits. FRAX not reported because all T-scores at or above -1.0. NOTE: T-score: Standard deviation compared with peak bone mass of young adult mean. *Following the recommendations of the International Society of Bone densitometry, classification of hip BMD is based on the lower of two T-scores; total hip or femoral neck. IMPRESSION: Normal bone mineral density of the lumbar spine and hips. No statistically significant change from prior. Reviewed, Interpreted and Dictated by Wali Ribeiro III, MD Transcribed by Zahira Bowen Authenticated and . [facility]
== END ==
PROVIDERS: PCP Family Medicine; Visit Provider Family Medicine
DX: Z13.820 Encounter for screening for osteoporosis (principal); M85.89 Other specified disorders of bone density and structure, multiple sites
CPT/HCPCS: 77080

== ENCOUNTER → 2023-02-26 08:20 | Outpatient (CLI) | payer BC, SELFPAY ==
--- NOTE | 2023-02-26 08:32 | XR_ITS ---
FINAL REPORT CLINICAL HISTORY: Left foot hammertoes COMPARISON: None FINDINGS: RIGHT FOOT: Three views of the right foot were obtained. There is no acute fracture or dislocation. There is a second digit hammertoe. There is mild degenerative change. Plantar calcaneal spur is noted. Soft tissue swelling is noted at the dorsal midfoot. IMPRESSION: Second digit hammertoe. Soft tissue swelling. Reviewed, Interpreted and Dictated by Wali Ribeiro III, MD Transcribed by Zahira Bowen Authenticated and . [facility]
== END ==
PROVIDERS: PCP Family Medicine; Visit Provider Podiatrist
DX: M79.672 Pain in left foot (principal)
CPT/HCPCS: 73630

== ENCOUNTER → 2023-03-27 11:50 | Outpatient (CLI) | payer BC, SELFPAY ==
--- NOTE | 2023-03-27 11:59 | ECG_ITS ---
APPROVED REPORT Exam: Resting ECG HR:50 bpm ECG Measurements Heart Rate 50 AXES WA 153 P 72 QRSd 81 QRS 48 QT 431 T 31 QTc 404 Conclusion SINUS BRADYCARDIA BORDERLINE ECG UNCONFIRMED REPORT Electronically signed by : Miguel Dawson MD 03/28/2023 16:03:22
--- NOTE | 2023-03-27 12:21 | XR_ITS ---
FINAL REPORT CLINICAL HISTORY: foot pain/swelling pre-op foot surgery next week. htn, chest pain COMPARISON: None FINDINGS: Two views of the chest were obtained. The heart size and pulmonary vascularity are within normal limits. The mediastinum is normal. No acute pulmonary abnormality is identified. There is no pneumothorax. The bony thorax is intact. IMPRESSION: No active cardiopulmonary disease. Reviewed, Interpreted and Dictated by Wali Ribeiro III, MD Transcribed by Tyra Noyola Authenticated and . [facility]
[2023-03-27 12:45] LABS: Basophils # 0.1 K/mm3 (0-0.2); Eosinophils # 0.2 K/mm3 (0.0-0.4); Eosinophils % 3.6 % (0.1-12.0); Hematocrit 42.2 % (37.0-47.0); Hemoglobin 13.4 g/dL (12.2-16.2); Lymphocytes % 39.1 % (10-50); Mean Corpuscular HGB Conc 31.7 g/dL (31.8-35.4); Mean Corpuscular Hemoglobin 28.4 pg (27.0-31.2); Mean Corpuscular Volume 89.6 fl (81-99); Mean Platelet Volume 7.1 fl (7.4-10.4); Monocytes # 0.3 K/mm3 (0.1-1.0); Monocytes % 6.4 % (1.7-9.3); Neutrophils # 2.6 K/mm3 (1.8-7.8); Platelet Count 200 K/mm3 (142-424); Red Blood Count 4.71 M/mm3 (4.20-5.40); Red Cell Distribution Width 13.6 % (11.5-17.5); White Blood Count 5.2 K/mm3 (4.8-10.8)
[2023-03-27 13:43] LABS: Alanine Aminotransferase 21 U/L (12-78); Albumin Level 3.9 g/dl (3.5-5.0); Albumin/Globulin Ratio 1.3 (1.1-1.8); Alkaline Phosphatase 78 U/L (38-126); Anion Gap 11.3 mEq/L (5-15); Aspartate Amino Transferase 26 U/L (14-36); Bilirubin,Total 0.5 mg/dl (0.2-1.3); Blood Urea Nitrogen 22 mg/dl (7-17); Calcium 9.1 mg/dl (8.4-10.2); Carbon Dioxide 27 mmol/L (22.0-30.0); Chloride 104 mmol/L (98-107); Estimated Glomerular Filt Rate 102 ml/min (>60); GFR (African American) 123 ML/MIN (>60); Globulin 2.9 g/dL (1.3-3.2); Glucose 106 mg/dl (74-100); Potassium 4.3 mmoL/L (3.5-5.1); Sodium 138 mmol/L (136-145); Total Protein,Serum 6.8 g/dl (6.3-8.2)
== END ==
PROVIDERS: PCP Family Medicine; Visit Provider Podiatrist
DX: G57.62 Lesion of plantar nerve, left lower limb (principal)
CPT/HCPCS: 36415; 71046; 80053; 85025; 93005

== ENCOUNTER 2023-04-04 06:04 | Day surgery (SDC) | payer BC, SELFPAY ==
[2023-04-01 14:46] VITALS: BMI 34.0
[2023-04-04 06:22] VITALS: BP 123/78; PULSE 60; RESP 18; TEMP 36.9; O2SAT 98
[2023-04-04 08:17] VITALS: TEMP 43
--- NOTE | 2023-04-04 08:36 | EXP.ANES.CKL ---
[facility] Disclaimer: The information contained in this section may have been updated after the patient was seen, as this information can be updated by other users. Medical History Elevated blood pressure reading History of snoring Hyperlipidemia Intermittent palpitations PAC (premature atrial contraction) Surgical History Hx of colonoscopy Hx of dilation and curettage Family History Other Cancer Diabetes Heart attack Hypertension Stroke Social History Smoking Status: Former smoker alcohol intake: current counseling provided: provider counseling substance use type: denies use current occupational status: other Travel in the last 8 weeks: None household members: spouse caffeine: Yes [facility] Anesthesia Checklist Patient Identification Patient Identification: Arm Band Structural Data Admitted From: Home Planned Operative Procedure/s: Left 2nd/3rd Hammertoe Repair, Excision of 2nd Interspace Neuroma Consent for Planned Operative Procedure(s) Verified: Yes Verified Documents: Surgical Consent and History and Physical NPO Status Verified Time NPO: 00:00 Additional verifications Anesthesia Reactions: No Hx Blood Transfusions: No Blood Transfusion Reaction: No Airway Assessment Mallampati Score:: Class II C-Spine Mobility Assessed: Yes TMJ Mobility Assessed: Yes Dentition: Good Dentition Neurological Assessment Level of Consciousness: Awake and Alert Anesthesia Plan Anesthesia Risk discussed: Yes Anesthesia Plan: Verified ASA Class: II Anesthesia Type: MAC w/Block (Left Popliteal/Saphenous Nerve Block. Risks/benefits explained. Pt verbalized understanding)
[2023-04-04 08:45] VITALS: BP 116/60; PULSE 63; RESP 18; TEMP 36.1; O2SAT 96
[2023-04-04 08:55] VITALS: BP 107/55; PULSE 64; RESP 17; O2SAT 95
[2023-04-04 09:05] VITALS: BP 103/51; PULSE 67; RESP 16; O2SAT 98
--- NOTE | 2023-04-04 09:12 | P.OP_ITS ---
Date of procedure: 04/04/23 Pre-op Diagnosis:: left foot second and third hammertoes; second interspace neuroma Post-op Diagnosis:: same Procedure performed:: hammertoe correction left second and third toes; second interspace neuroma excision Surgeon:: Sarkis Aaron DPM [employer]:: Caleb Vincent Anesthesia: MAC and other (popliteal) Estimated blood loss (mL): 1 Operative findings:: small neuroma second interspace Operative note:: Patient was seen in the preop holding area. Identified the patient as well as had her explained the procedures to her best ability more can be done which are hammertoe corrections and the neuroma excision of the left foot. Signed the foot and answered all questions for the patient. Confirmed consent; and anesthesia put a popliteal nerve block and. Patient wheeled to the operative room left on the supine position for surgery. The foot was scrubbed prepped and draped in usual aseptic manner. Timeout was performed in the room with all present. Esmarch bandage used to exsanguinate the left foot and tourniquet inflated to 250 mmHg. Patient is directed to the dorsal second interspace and extended to the dorsal left second proximal to phalangeal joint. Care was taken to preserve protect vital neurovascular structures his incision was deepened through subtenons tissues and through the interspace. Retraction was performed with a laminar front desk person and deep transverse intermetatarsal ligament was identified and transected. Through this there was identified a small neuroma: left second interspace it was dissected as far distally and proximally as possible to contract into the muscle beyond the second interspace. It was excised and sent for pathology. Attention was then directed to the dorsal aspect of the proximal to phalangeal joint where a tenotomy capsulotomy was performed of the left second toe. Sagittal bone saw used to resect the head of the proximal phalanx. Dissected and freed up the second MPJ capsular structures and used a McGlamry elevator to free the plantar plate. Attention then directed to the left third toe where 2 converging centimeters elliptical horizontal incisions were made over the proximal to phalangeal joint of the left third toe. Tenotomy capsulotomy performed and care was taken to preserve protect vital neurovascular structures of this toe as well. Sagittal bone saw was used to resect the head of the proximal phalanx of the third toe. The second and third toes were then secured in rectus position with use of K wires 0.045 and Jurgan balls. Irrigated with copious amounts of sterile normal saline and then closed in layers with 3-0 Vicryl and 3-0 nylon. Rectus position of the toes was confirmed performed and then we dressed the wound with Xeroform gauze, 4 x 4's, soft roll and an outer elastic bandage. Tourniquet had been released and prompt hyperemic response was noted to all digits of the patient's left foot. She will keep dressing clean and intact till follow-up appointment in a week she can may bear weight but I want her to reduce activity to necessities for the course of the week. Wrote a prescription for prednisone Dosepak as well as Phenergan. Had discussed pain medication with the patient she would prefer mainly Tylenol; I told her I would prescribe a few hydrocodone or oxycodone based on insurance approval. The patient tolerated the procedure and anesthesia well and was wheeled back to same-day surgery to be discharged home today and she understands the postoperative care. Tourniquet time (min): 45 Condition: stable Disposition: same day Specimens:: neuroma left foot second interspace Complications:: negative
[2023-04-04 09:15] VITALS: BP 118/56; PULSE 64; RESP 18; O2SAT 99
== END 2023-04-04 09:15 | disposition home or self-care (01) ==
PROVIDERS: PCP Family Medicine; Visit Provider Podiatrist
PROC: (CPT 28285; principal; 2023-04-04 07:30)
DX: M20.42 Other hammer toe(s) (acquired), left foot (principal); G57.82 Other specified mononeuropathies of left lower limb
CPT/HCPCS: 28285 ×2; 28092; 96374

== ENCOUNTER 2023-07-09 11:00 | Outpatient (RCR) | payer BC, SELFPAY ==
--- NOTE | 2023-06-24 08:23 | HMH.PTOPWND ---
Rehab Outpt Wound Evaluation Rehab OP Wound Evaluation Start: 06/24/23 07:59 Freq: Status: Active Protocol: Document 06/24/23 08:16 PHOJUAN (Rec: 06/24/23 08:23 PHORNE [id number]) E-signed By Rodrick Cherry, PT Subjective/History History History This is the initial PT eval for Mounika Hatch, 62 yowf who presents with continued L foot edema ~ 3 mos S/P surgery . She had L 2nd and 3rd toe hammer toe reconstruction with neuroma excision performed . She reports continued intermittent pain and continued numbness in the area of surgery. She reports persistent edema in the L 2nd and 3rd toes and MT area that does not dissipate. Subjective Subjective Current pain is 0/10, at worst pain is 5/10. 2/4 TTP noted to L 2nd and 3rd toes dorsally . Moderate fibrotic edema noted to same area. New diagnosis of cancer in past 12 No months? Lymphedema Eval Classification of Lymphedema Secondary Lymphedema Yes Post-Surgical Lymphedema Yes Stemmer's sign Stemmer's Sign yes Stage of Lymphedema Lymphedema stages Stage II (Pitting edema, increased fibrosis w/ decreased pitting) Skin Changes Dry Skin Yes Other Changes Yes Pain Scale Pain Scale (0-10) 5 Affected Extremities Areas Affected by Lymphedema/Edema Left Lower Extremity Manual Lymphatic Drainage Treatment Area MLD Treatment Area Left Lower Extremity Wound Problems/Impairments Impairments Problems/Impairmments Palpation Tenderness,Impaired Range of Motion,Impaired Walking,Impaired Standing, Impaired Recreational Activities,Increased Edema, Lymphedema Present,Subjective C/O Pain,Impaired Self Care/ Self Management Prognosis Rehab Potential Good Clinical Impression Consistent with Diagnosis Yes Short Term Goals Number of Weeks 2 Decreased Palpation Tenderness Yes: 1/4 L foot Decrease Lymphedema Yes: Mild fibrotic edema Decrease Subjective C/O Pain Yes: 3/10 at worst Patient to Understand Lymphedema Yes Treatment and Exercises Lead Cargoman Goals Number of Weeks 4 Decreased Palpation Tenderness Yes: 0/4 L foot Decrease Lymphedema Yes: No fibrotic edema L foot Decrease Subjective C/O Pain Yes: 1/10 at worst Patient to be Ind w/ HEP Yes Patient to Adhere Lymphedema Precautions Yes Outpatient Therapy Plan of Care Treatment Plan May Include Therapeutic Exercise Including Home Yes Exercise Program Manual Therapy Techniques Yes Neuromuscular Re-education Yes Therapeutic Activities to Return to Yes Previous Functional/Work Level Gait Training Yes ADL/Self Care Education Yes Thermal Modalities Yes Electrical Stimulation Yes Orthotics/Bracing/Splinting Yes Massage Yes Manual Lymphatic Drainage Yes Eval/Re-Eval Yes Frequency Times per week 2 Duration Number of Weeks 4 Addendums This patient is a candidate for social No or vocational rehab? Patient/Guardian verbally acknowledges Yes understanding of treatment program and consents to further treatment? Patient/Guardian verbally acknowledges Yes understanding of diagnosis, prognosis and goals for treatment? Eval Complexity PT Charges 87813 - High Complexity PHYSICIAN CERTIFICATION: I certify the specified therapy services for Mounika Hatch are required, authorized, and reviewed every 30 days.
== END 2023-07-09 12:00 | disposition home or self-care (01) ==
LOC: PT 11:00
PROVIDERS: PCP Family Medicine; Visit Provider Podiatrist
DX: R60.0 Localized edema; Z98.890 Other specified postprocedural states
CPT/HCPCS: 97140; 97163

== ENCOUNTER → 2023-09-18 15:00 | Outpatient (CLI) | payer BC, SELFPAY | LOC: SL 15:03 | PROVIDERS: PCP Family Medicine; Visit Provider Nurse Practitioner Family | DX: G47.33 Obstructive sleep apnea (adult) (pediatric) (principal); R06.83 Snoring | CPT/HCPCS: G0399 ==

== ENCOUNTER 2023-10-08 09:52 | Outpatient (CLI) | payer BC, SELFPAY ==
[2023-10-08 10:45] LABS: Basophils # 0.1 K/mm3 (0-0.2); Eosinophils # 0.1 K/mm3 (0.0-0.4); Eosinophils % 3.4 % (0.1-12.0); Hematocrit 42.1 % (37.0-47.0); Hemoglobin 13.4 g/dL (12.2-16.2); Lymphocytes # 1.7 K/mm3 (0.7-4.5); Lymphocytes % 41.1 % (10-50); Mean Corpuscular HGB Conc 31.7 g/dL (31.8-35.4); Mean Corpuscular Volume 94.5 fl (81-99); Monocytes # 0.3 K/mm3 (0.1-1.0); Monocytes % 7.1 % (1.7-9.3); Neutrophils # 1.9 K/mm3 (1.8-7.8); Neutrophils % 46.4 % (37.0-80.0); Platelet Count 215 K/mm3 (142-424); Red Blood Count 4.46 M/mm3 (4.20-5.40); Red Cell Distribution Width 13.5 % (11.5-17.5); White Blood Count 4.1 K/mm3 (4.8-10.8)
[2023-10-08 11:06] LABS: Chloride 108 mmol/L (98-107); Potassium 4.9 mmoL/L (3.5-5.1); Sodium 140 mmol/L (136-145)
[2023-10-08 11:08] LABS: Blood Urea Nitrogen 20 mg/dl (7-17); Estimated Glomerular Filt Rate 102 ml/min (>60); GFR (African American) 123 ML/MIN (>60)
[2023-10-08 11:09] LABS: Alanine Aminotransferase 35 U/L (12-78); Albumin Level 3.7 g/dl (3.5-5.0); Albumin/Globulin Ratio 1.4 (1.1-1.8); Alkaline Phosphatase 82 U/L (38-126); Anion Gap 4.9 mEq/L (5-15); Aspartate Amino Transferase 51 U/L (14-36); Bilirubin,Total 0.6 mg/dl (0.2-1.3); Calcium 9.5 mg/dl (8.4-10.2); Carbon Dioxide 32 mmol/L (22.0-30.0); Globulin 2.6 g/dL (1.3-3.2); Glucose 105 mg/dl (74-100); Total Protein,Serum 6.3 g/dl (6.3-8.2)
[2023-10-08 11:16] LABS: C-Reactive Protein 2.9 mg/L (0-4)
[2023-10-08 11:34] LABS: Erythrocyte Sedimentation Rate 18 mm/hr (0-30)
[2023-10-08 12:00] LABS: Vitamin B12 782 pg/mL (239-931)
[2023-10-09 11:14] LABS: Rapid Plasma Reagin Ab Titer Non Reactive titer (NonRea<1:1)
[2023-10-10 10:19] LABS: Antinuclear Antibodies (ANA) Negative
== END 2023-10-08 23:59 ==
LOC: LAB 09:53
PROVIDERS: PCP Family Medicine; Visit Provider Nurse Practitioner Family
DX: R41.3 Other amnesia (principal)
CPT/HCPCS: 36415; 80053; 82607; 82746; 84443; 85025; 85651; 86038; 86140; 86225; 86235; 86593

== ENCOUNTER 2024-03-29 13:29 | Outpatient (CLI) | payer BC, SELFPAY ==
--- NOTE | 2024-03-29 13:30 | MM_ITS ---
PROCEDURE INFORMATION: Exam: MG Bilateral Screening 3D Mammography Exam date and time: 03/29/2024 1:17 PM Age: 63 years old Clinical indication: Screening exam. TECHNIQUE: Imaging protocol: Bilateral Screening tomosynthesis and 2D mammography including computer-aided detection (CAD) when performed. COMPARISON: 1. MG MM DIG SCREENING MAMM BI W/CAD 12/31/2022 9:46 AM 2. MG MM DIG SCREENING MAMM BI W/CAD 10/19/2020 9:28 AM FINDINGS: MAMMOGRAPHY: Breast composition: There are scattered areas of fibroglandular density. Mass: No suspicious masses. Architectural distortion: None. Calcifications: No suspicious calcifications. Asymmetric density: None. Skin thickening: None. Axillary adenopathy: None. IMPRESSION: No mammographic evidence of malignancy. Annual screening is recommended unless otherwise clinically indicated. ASSESSMENT: BI-RADS Category 1: Negative.
== END 2024-03-29 23:59 | disposition home or self-care (01) ==
LOC: RAD 13:30
PROVIDERS: PCP Family Medicine; Visit Provider Family Medicine
DX: Z12.31 Encounter for screening mammogram for malignant neoplasm of breast (principal)
CPT/HCPCS: 77063; 77067

== ENCOUNTER 2025-06-06 15:44 | Outpatient (CLI) | payer BC, SELFPAY ==
--- OUTSIDE RECORDS SUMMARY | 2025-06-06 15:52 | XMS_ITS | Clinical Summary ---
Author Organization Healthcare Address [address] [place] [address] Care Team Providers Care Acid Conditioner Name Role Phone Unavailable Primary Care Provider Unavailabl e Allergies No known active allergies Medications meloxicam (Mobic) 15 MG tablet Take 1 tablet (15 mg) by mouth 1 (one) time each day. 02/06/2023 Active rosuvastatin (Crestor) 20 MG tablet Take 1 tablet (20 mg) by mouth 1 (one) time each day. 02/06/2023 Active metoprolol succinate XL (Toprol-XL) 50 MG 24 hr tablet Take 1 tablet (50 mg) by mouth 1 (one) time each day. 02/06/2023 Active Active Problems No known active problems Social History Tobacco Use Types Packs/Day Years Used Date Smoking Tobacco: Never Smokeless Tobacco: Never Tobacco Cessation:Counseling Given: Not Answered Alcohol Use Standard Drinks/Week Comments Never 0 (1 standard drink = 0.6 oz pur e alcohol) Comments Unknown Sex and Gender Information Value Date Recorded Sex Assigned at Not on file Legal Sex Female 10:14 AM EDT Gender Identity Not on file Sexual Orientation Not on file Last Filed Vital Signs Vital Sign Reading Time Taken Comments Blood Pressure 147/88 02/25/2024 4:35 PM EDT Pulse 60 02/25/2024 4:35 PM EDT Temperature 35 C (95 F) 02/25/2024 4:35 PM EDT Respiratory Rate - - Oxygen Saturation 99% 02/25/2024 4:35 PM EDT Inhaled Oxygen Concentration - - Weight 88 kg (194 lb) 02/25/2024 4:35 PM EDT Height 177.8 cm (5' 10 ) 02/25/2024 4:35 PM EDT Body Mass Index 27.84 02/25/2024 4:35 PM EDT Plan of Treatment Health Maintenance Due Date Last Done Comments Dental Oral Exam 1961 Dental Prophylaxis 1961 Dental X-Ray: Bitewings 1961 Dental X-Ray: Full Mouth 1961 [facility]-Depression Screening 1961 [facility]-HIV Screening 1961 [facility]-Hepatitis C Screening 1961 [facility]-/Child/Adol SDOH Screenings 1961 [facility]- SDOH Screenings 12/15/1979 [facility]-Adult SDOH Screenings 12/15/1979 [facility]-Pap Smear 1982 [facility]-Cervical Cancer Screening 12/15/1991 [facility]-HPV/Cotest 12/15/1991 CT Colonography 2006 Colonoscopy 2006 FIT-DNA 2006 FIT 2006 FOBT 2006 Sigmoidoscopy 2006 [facility]-Colorectal Cancer Screening 2006 [facility]-Breast Cancer Screening 12/15/2011 [facility]-Pneumococcal Vaccine: 50+ Years (1 of 1 - PCV) 12/15/2011 [facility]-Zoster Vaccines (2 of 3) 12/27/2019 11/01/2019, 04/30/2019 [id number] Vaccine (4 - 2024- season) 2025 05/21/2022, 09/01/2020, 08/02/2020 [facility]-Influenza Vaccine (#1) 03/14/202505/21, 05/08/2021, 05/29/2020, Additional history exists [facility]-DTaP,Tdap,and Td Vaccines (2 - Td or Tdap) 12/13/2028 12/13/2018 [facility]-RSV Vaccine: 60+ Years or (1 - 1-dose 75+ series) 2036 [facility]-Hepatitis A Vaccines Aged Out 11/27/2018, 110 07/2017 No longer eligible based on patient's age to complete this topic [facility]-Obesity Intervention Completed 024, 08/04/2023, 07/21/2023, Additional history exists HPV Vaccines Aged Out No longer eligi ble based on patient's age to complete this topic [facility]-HIB Vaccines Aged Out No longer e ligible based on patient's age to complete this topic [facility]-IPV Vaccines Aged Out No longer e ligible based on patient's age to complete this topic [facility]-Rotavirus Vaccines Aged Out No lo nger eligible based on patient's age to complete this topic Insurance [id number] [id number] [facility]
--- OUTSIDE RECORDS SUMMARY | 2025-06-06 15:52 | XMS_ITS | Encounter Summary ---
Author Organization Healthcare Address [address] [place] [address] Care Team Providers Care Auto Servicer Name Role Phone Unavailable Primary Care Provider Unavailabl e Reason for Referral * Consultation (Routine) - Closed Specialty Diagnoses / Procedures Referred By Hema t Referred To Contact Dentist / Pain Medicine Diagnoses Obstructive sleep apnea (adult) (pediatric) Pete Patel APRN [address] [place] [address] Phone: tel: fax: Referral ID Status Reason Start Date Expiration Date Visits Re quested Visits Authorized [id number] Closed 12/12/2022 06/12/2024 1 1 Encounter Details Date Type Department Care Team (Late st Contact Info) Description 12/12/2022 Community Orders [facility] [address] [place] [phone] Pete Patel APRN [address] [place] [address] Obstructive sleep apnea (adult) (pediatric) (Primary Dx) Social History Tobacco Use Types Packs/Day Years Used Date Smoking Tobacco: Never Assessed Comments Unknown Sex and Gender Information Value Date Recorded Sex Assigned at Not on file Legal Sex Female 10:14 AM EDT Gender Identity Not on file Sexual Orientation Not on file documented as of this encounter Plan of Treatment Scheduled Referrals Name Type Priority Associated Diagnoses Order Schedule Ambulatory Referral to Orofacial Pain Outpatient Referral Routine Obstructive sleep apnea (adult) (pediatric) Expected: 12/12/2022 (Approximate), Expires: 06/13/2024 documented as of this encounter Visit Diagnoses Diagnosis Obstructive sleep apnea (adult) (pediatric)- Primary documented in this encounter
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
--- NOTE | 2025-06-06 16:00 | MM_ITS ---
PROCEDURE INFORMATION: Exam: MG Bilateral Screening 3D Mammography Exam date and time: 06/06/2025 3:51 PM Age: 64 years old Clinical indication: Screening exam. TECHNIQUE: Imaging protocol: Bilateral Screening tomosynthesis and 2D mammography including computer-aided detection (CAD) when performed. COMPARISON: 1. MG MM DIG SCREENING MAMM BI W/CAD 03/29/2024 1:17 PM 2. MG MM DIG SCREENING MAMM BI W/CAD 12/31/2022 9:46 AM FINDINGS: MAMMOGRAPHY: Breast composition: There are scattered areas of fibroglandular density. Mass: No suspicious masses. Architectural distortion: None. Calcifications: No suspicious calcifications. Asymmetric density: None. Skin thickening: None. Axillary adenopathy: None. IMPRESSION: No mammographic evidence of malignancy. Annual screening is recommended unless otherwise clinically indicated. ASSESSMENT: BI-RADS Category 1: Negative.
== END 2025-06-06 23:59 | disposition home or self-care (01) ==
LOC: RAD 15:44
PROVIDERS: PCP Family Medicine; Visit Provider Obstetrics & Gynecology
DX: Z12.31 Encounter for screening mammogram for malignant neoplasm of breast (principal); R92.323 Mammographic fibroglandular density, bilateral breasts
CPT/HCPCS: 77063; 77067